=== PATIENT | male | born 1965 | race Caucasian/White ===

== ENCOUNTER 2024-08-19 20:32 | Inpatient (IN) | payer OTHER ==
[~2024-08-19] VITALS: Ht 177.8 cm; Wt 121.0 kg
[2024-08-19 22:59] LABS: BASOPHILS % (AUTO) 0.9 % (0.0-2.0); EOSINOPHILS % (AUTO) 4.9 % (1.0-6.0); HEMATOCRIT 37.3 % (41-53); HEMOGLOBIN 12.6 g/dL (13.5-17.5); LYMPHOCYTES # (AUTO) 1.3 K/uL (1.0-4.8); LYMPHOCYTES % (AUTO) 23.8 % (22.0-44.0); MEAN CORPUSCULAR HEMOGLOBIN 27.6 pg (26.0-34.0); MEAN CORPUSCULAR HGB CONC 33.8 G/dL (31.0-37.0); MEAN CORPUSCULAR VOLUME 82 fL (80-100); MONOCYTES # (AUTO) 0.4 K/uL (0.1-1.0); MONOCYTES % (AUTO) 7.8 % (2.0-9.0); NEUTROPHILS # (AUTO) 3.3 K/uL (1.8-7.7); NEUTROPHILS % (AUTO) 62.6 % (40.0-70.0); PLATELET COUNT (AUTO) 140 K/uL (150-450); RED BLOOD CELL COUNT(AUTO) 4.58 MIL/uL (4.50-5.90); RED CELL DISTRIBUTION WIDTH 14.4 % (11.5-14.5); WHITE BLOOD COUNT (AUTO) 5.4 K/uL (4.5-11.0)
[2024-08-19] MEDS: NITROGLYCERIN 2% (1 GM=INCH) OINTMENT PACKET TP ONE (23:05)
[2024-08-19] MEDS: NITROGLYCERIN 0.4 MG SUBLINGUAL TABLET #25 SL ONE (23:05)
[2024-08-19] MEDS: ASPIRIN 81 MG CHEWABLE TABLET PO ONE (23:05)
[2024-08-19 23:14] LABS: B-TYPE NATRIURETIC PEPTIDE 11 pg/mL (0-100)
[2024-08-19] MEDS ORDERED: ONDANSETRON HCL 4 MG/2 ML VIAL IVP PRN (23:15)
[2024-08-19 23:43] LABS: ANION GAP 6 mmol/L (8-16); CALCIUM, TOTAL 8.3 mg/dL (8.8-10.5); CARBON DIOXIDE 30 mmol/L (22-29); CHLORIDE 105 mmol/L (98-107); CREATININE 0.87 mg/dL (0.60-1.30); GLOMERULAR FILTR. RATE CALC > 60 mL/min (>60); GLUCOSE,RANDOM 94 mg/dL (70-110); POTASSIUM 4.2 mmol/L (3.5-5.1); SODIUM SERUM 141 mmol/L (136-145); UREA NITROGEN, BLOOD 22 mg/dL (7-18)
[2024-08-19 23:52] LABS: TROPONIN I-HIGH SENSITIVITY 5 ng/L (<76)
[2024-08-20] VITALS (8 sets, daily range): BP systolic 109–133; BP diastolic 57–86; PULSE 64–76; RESP 18–20; TEMP 97.6–98.5; O2SAT 94–99
[2024-08-20] MEDS: HEPARIN SODIUM,PORCINE 5,000 UNITS/ML VIAL SQ SCH (00:30)
[2024-08-20] MEDS: MORPHINE SULFATE 2 MG/ML SYRINGE IVP ONE ×2 (00:31→18:59)
[2024-08-20] MEDS: FUROSEMIDE 20 MG/2 ML VIAL IVP SCH (03:02)
[2024-08-20] MEDS: NITROGLYCERIN 0.4 MG SUBLINGUAL TABLET #25 SL PRN (03:02)
[2024-08-20 06:44] LABS: BASOPHILS % (AUTO) 1.2 % (0.0-2.0); EOSINOPHILS % (AUTO) 5.2 % (1.0-6.0); HEMOGLOBIN 12.1 g/dL (13.5-17.5); LYMPHOCYTES # (AUTO) 1.1 K/uL (1.0-4.8); LYMPHOCYTES % (AUTO) 27.3 % (22.0-44.0); MEAN CORPUSCULAR HEMOGLOBIN 27.5 pg (26.0-34.0); MEAN CORPUSCULAR HGB CONC 33.7 G/dL (31.0-37.0); MEAN CORPUSCULAR VOLUME 82 fL (80-100); MONOCYTES # (AUTO) 0.4 K/uL (0.1-1.0); MONOCYTES % (AUTO) 8.9 % (2.0-9.0); NEUTROPHILS # (AUTO) 2.4 K/uL (1.8-7.7); NEUTROPHILS % (AUTO) 57.4 % (40.0-70.0); PLATELET COUNT (AUTO) 135 K/uL (150-450); RED BLOOD CELL COUNT(AUTO) 4.41 MIL/uL (4.50-5.90); RED CELL DISTRIBUTION WIDTH 14.2 % (11.5-14.5); WHITE BLOOD COUNT (AUTO) 4.1 K/uL (4.5-11.0)
[2024-08-20 06:54] LABS: ANION GAP 8 mmol/L (8-16); CARBON DIOXIDE 29 mmol/L (22-29); CHLORIDE 107 mmol/L (98-107); CREATININE 0.84 mg/dL (0.60-1.30); GLOMERULAR FILTR. RATE CALC > 60 mL/min (>60); GLUCOSE,RANDOM 107 mg/dL (70-110); POTASSIUM 3.6 mmol/L (3.5-5.1); SODIUM SERUM 144 mmol/L (136-145); UREA NITROGEN, BLOOD 19 mg/dL (7-18)
[2024-08-20] MEDS: DOCUSATE SODIUM 100 MG CAPSULE PO SCH (08:35)
[2024-08-20] MEDS: APIXABAN 5 MG TABLET PO SCH (08:35)
[2024-08-20 16:04] LABS: TROPONIN I-HIGH SENSITIVITY 5 ng/L (<76)
[2024-08-20] MEDS: FUROSEMIDE 40 MG/4 ML VIAL IVP SCH (19:50)
[2024-08-20 20:12] LABS: TROPONIN I-HIGH SENSITIVITY 5 ng/L (<76)
[2024-08-20] MEDS: ACETAMINOPHEN 325 MG TABLET PO PRN (21:20)
[2024-08-21 03:06] LABS: GLUCOMETER DEV NAME(LOC) 5S.2D; GLUCOSE,POINT OF CARE 111 MG/DL (70-110)
[2024-08-21 04:20] VITALS: BP 111/69; PULSE 61; RESP 16; TEMP 97.9; O2SAT 96
[2024-08-21 07:21] LABS: BASOPHILS % (AUTO) 0.6 % (0.0-2.0); EOSINOPHILS % (AUTO) 4.8 % (1.0-6.0); HEMATOCRIT 36.9 % (41-53); HEMOGLOBIN 12.6 g/dL (13.5-17.5); LYMPHOCYTES # (AUTO) 1.3 K/uL (1.0-4.8); LYMPHOCYTES % (AUTO) 26.7 % (22.0-44.0); MEAN CORPUSCULAR HEMOGLOBIN 27.6 pg (26.0-34.0); MEAN CORPUSCULAR HGB CONC 34.2 G/dL (31.0-37.0); MEAN CORPUSCULAR VOLUME 81 fL (80-100); MONOCYTES # (AUTO) 0.4 K/uL (0.1-1.0); MONOCYTES % (AUTO) 9.2 % (2.0-9.0); NEUTROPHILS # (AUTO) 2.8 K/uL (1.8-7.7); NEUTROPHILS % (AUTO) 58.7 % (40.0-70.0); PLATELET COUNT (AUTO) 142 K/uL (150-450); RED BLOOD CELL COUNT(AUTO) 4.57 MIL/uL (4.50-5.90); RED CELL DISTRIBUTION WIDTH 14.4 % (11.5-14.5); WHITE BLOOD COUNT (AUTO) 4.8 K/uL (4.5-11.0)
[2024-08-21 07:38] LABS: ANION GAP 6 mmol/L (8-16); CALCIUM, TOTAL 8.3 mg/dL (8.8-10.5); CARBON DIOXIDE 32 mmol/L (22-29); CHLORIDE 105 mmol/L (98-107); CREATININE 1.01 mg/dL (0.60-1.30); GLOMERULAR FILTR. RATE CALC > 60 mL/min (>60); GLUCOSE,RANDOM 87 mg/dL (70-110); SODIUM SERUM 143 mmol/L (136-145); UREA NITROGEN, BLOOD 26 mg/dL (7-18)
[2024-08-21 08:28] VITALS: BP 123/72; PULSE 61; RESP 17; TEMP 98; O2SAT 95
[2024-08-21] MEDS ORDERED: DIVA-112 PO (09:12)
[2024-08-21] MEDS ORDERED: TOLN28CR6 TP (09:12)
[2024-08-21] MEDS ORDERED: NITR0.4T50 SL (09:12)
[2024-08-21] MEDS ORDERED: OLAN10TA22 PO (09:12)
[2024-08-21] MEDS ORDERED: PANT-31 PO (09:12)
[2024-08-21] MEDS ORDERED: AMLO10TA55 PO (09:12)
[2024-08-21] MEDS ORDERED: ATOR-427 PO (09:12)
[2024-08-21] MEDS ORDERED: BENZ2TAB84 PO (09:12)
[2024-08-21] MEDS ORDERED: CALC-613 PO (09:12)
[2024-08-21] MEDS ORDERED: AMIO100T4 PO (09:12)
[2024-08-21] MEDS ORDERED: METR45CR9 TP (09:12)
[2024-08-21] MEDS ORDERED: DOXY-354 PO (09:12)
[2024-08-21] MEDS ORDERED: APIX5TAB PO (09:12)
[2024-08-21] MEDS ORDERED: COLL1PAC16 TP (09:12)
[2024-08-21] MEDS ORDERED: KETO120S13 TP (09:12)
[2024-08-21] MEDS ORDERED: MIRT-149 PO (09:12)
[2024-08-21] MEDS ORDERED: BUPR1FIL7 SL (09:12)
[2024-08-21] MEDS ORDERED: OLAN20TA2 PO (09:12)
[2024-08-21] MEDS ORDERED: LOSA-382 PO (09:12)
[2024-08-21] MEDS ORDERED: HYDR50CA7 PO (09:12)
[2024-08-21] MEDS ORDERED: LIDO1ADH83 TP (09:12)
[2024-08-21] MEDS ORDERED: ASPI81TA87 PO (09:12)
[2024-08-21] MEDS ORDERED: FURO-151 PO (11:28)
[2024-08-21 12:55] VITALS: BP 127/69; PULSE 92; RESP 18; TEMP 98.3; O2SAT 100
[2024-08-21 13:19] VITALS: BP 126/81; PULSE 76; RESP 18; TEMP 98.3; O2SAT 96
== END 2024-08-21 16:45 | DRG 291 ==
LOC: EMS 20:32 → EDH 08-20 01:41 → 5S 08-20 02:42
PROVIDERS: ADMIT Internal Medicine; ATTEND Internal Medicine
DX: I11.0 Hypertensive heart disease with heart failure (principal); I50.43 Acute on chronic combined systolic (congestive) and diastolic (congestive) heart failure; D68.51 Activated protein C resistance; J45.909 Unspecified asthma, uncomplicated; F11.10 Opioid abuse, uncomplicated; Z68.38 Body mass index [BMI] 38.0-38.9, adult; F19.10 Other psychoactive substance abuse, uncomplicated; E66.01 Morbid (severe) obesity due to excess calories; F20.9 Schizophrenia, unspecified; E78.5 Hyperlipidemia, unspecified; G89.29 Other chronic pain; I48.91 Unspecified atrial fibrillation; Z88.0 Allergy status to penicillin; Z88.5 Allergy status to narcotic agent; Z79.01 Long term (current) use of anticoagulants; Z86.718 Personal history of other venous thrombosis and embolism; Z95.828 Presence of other vascular implants and grafts
CPT/HCPCS: 71045; 80048; 82962; 83735; 83880; 84484; 85025; 93005; 93306; 93970; 99291; J1644; J1940; J2270; 36415-L1; 36415-TC